=== PATIENT | male | born 1990 | race American Indian/Alaskan Native ===

== ENCOUNTER 2019-02-08 09:20 | Emergency (ER) | payer SELFPAY ==
[2019-02-08 09:27] VITALS: BP 129/89
[2019-02-08] MEDS ORDERED: ZOFRAN IM ONE (09:38)
[2019-02-08] MEDS ORDERED: TORADOL IM ONE (09:38)
[2019-02-08 10:08] LABS: Basophils # (Auto) 0.1 K/mm3 (0.0-0.1); Basophils % (Auto) 1.1 % (0.0-1.8); Eosinophils # (Auto) 0.1 K/mm3 (0.0-0.4); Hematocrit 46.1 % (35.5-45.6); Hemoglobin 15.1 gm/dl (11.8-15.2); Lymphocytes # (Auto) 1.8 K/mm3 (1.2-5.4); Lymphocytes % (Auto) 27.3 % (13.4-35.0); Mean Corpuscular HGB Conc 33 % (32-34); Mean Corpuscular Volume 91 fl (84-94); Monocytes # (Auto) 0.7 K/mm3 (0.0-0.8); Monocytes % (Auto) 10.5 % (0.0-7.3); Red Blood Count 5.09 M/mm3 (3.65-5.03)
[2019-02-08 10:23] LABS: BUN/Creatinine Ratio 8; Blood Urea Nitrogen 10 mg/dL (9-20); Calcium 9.4 mg/dL (8.4-10.2); Hemolysis Index 8
[2019-02-08 10:23] LABS: Bilirubin,Urine NEG (Negative); Blood,Urine NEG (Negative); Color,Urine Yellow (Yellow); Mucus,Urine FEW /HPF; Protein,Urine <15 mg/dL mg/dL (Negative); Urobilinogen,Urine < 2.0 mg/dL (<2.0)
--- NOTE | 2019-02-08 11:17 | Cat Scan Report ---
CT ABDOMEN AND PELVIS WITHOUT CONTRAST HISTORY: right flank pain. Right-sided abdominal pain for 2 weeks. COMPARISON: None. TECHNIQUE: Axial CT images were obtained through the abdomen and pelvis without IV contrast. Sagittal and coronal reformatted images. All CT scans at this location are performed using CT dose reduction for ALARA by means of automated exposure control. FINDINGS: CT ABDOMEN: Lung Bases: Clear. Liver: There is moderate diffuse fatty infiltration throughout the liver. Biliary: No significant abnormality. Spleen: No significant abnormality. Unenlarged. Pancreas: No significant abnormality. Adrenals: No significant abnormality. Kidneys: Both kidneys are normal size, contour and position. A solitary punctate calyceal stone is id entified in the mid right kidney on image 60, series 3. No focal renal lesion, ureteral stone or hydr onephrosis. The bladder is empty. Lymphatics: No lymphadenopathy. Vasculature: No significant abnormality. Bowel/Peritoneum: There is no evidence for bowel obstruction, mass or focal inflammation. The colon i s poorly distended but there appears to be mild diffuse thickening of the colon wall. A mild nonspeci fic colitis could be considered. Normal appendix. CT PELVIS: : No significant abnormality. Osseous Structures: No significant abnormality. Additional Findings: Small umbilical hernia containing fat is noted. IMPRESSION: Punctate right renal stone, nonobstructing. Question a mild nonspecific colitis. Signer Name: Cade Sellers Jr, MD Signed: 02/08/2019 11:12 AM Workstation Name: [id number]
[2019-02-08 11:37] LABS: Platelet Count 161 K/mm3 (140-440)
--- NOTE | 2019-02-08 11:52 | Emergency Department Report ---
ED Abdominal Pain HPI - General Chief Complaint: Abdominal Pain Stated Complaint: KIDNEY PAIN Time Seen by Provider: 02/08/19 09:34 Source: patient Mode of arrival: Ambulatory Limitations: No Limitations - History of Present Illness Initial Comments: Patient is a 28-year-old -Citizen Of [place] male with a past history of 2 weeks of right-sided flank pain. Patient states this is worse at night however it has been constant. She states her crampy sensation. Patient states when he urinates his flank hurts more. He has no dysuria or penile discharge or hematuria. Patient denies diarrhea. He has had some mild nausea but no vomiting. Patient has no past medical history of significance. Severity scale (0 -10): 9 - Related Data Previous Rx's Medication Instructions Recorded Last Taken Type Ciprofloxacin HCl [Ciprofloxacin 500 mg PO Q12HR #14 tab 02/08/19 Unknown Rx TAB] metroNIDAZOLE [Flagyl] 500 mg PO Q12HR #14 tab 02/08/19 Unknown Rx traMADol [Ultram] 50 mg PO Q6HR PRN #12 tablet 02/08/19 Unknown Rx Allergies Allergy/AdvReac Type Severity Reaction Status Date / Time ibuprofen [From Motrin IB] Allergy Nausea Verified 02/08/19 09:28 ED Review of Systems ROS: Stated complaint: KIDNEY PAIN Other details as noted in HPI Comment: All other systems reviewed and negative ED Past Medical Hx - Past Medical History Previous Medical History?: No - Surgical History Past Surgical History?: No - Social History Smoking Status: Never Smoker Substance Use Type: Alcohol - Medications Home Medications: Home Medications Medication Instructions Recorded Confirmed Last Taken Type Ciprofloxacin HCl [Ciprofloxacin 500 mg PO Q12HR #14 tab 02/08/19 Unknown Rx TAB] metroNIDAZOLE [Flagyl] 500 mg PO Q12HR #14 tab 02/08/19 Unknown Rx traMADol [Ultram] 50 mg PO Q6HR PRN #12 tablet 02/08/19 Unknown Rx ED Physical Exam - General Limitations: No Limitations General appearance: alert, in no apparent distress - Head Head exam: Present: atraumatic, normocephalic - Eye Eye exam: Present: normal appearance - ENT ENT exam: Present: mucous membranes moist - Neck Neck exam: Present: normal inspection - Respiratory Respiratory exam: Present: normal lung sounds bilaterally, wheezes, rales, rhonchi. Absent: respiratory distress - Cardiovascular Cardiovascular Exam: Present: regular rate, normal rhythm, normal heart sounds. Absent: systolic murmur, diastolic murmur, rubs, gallop - GI/Abdominal GI/Abdominal exam: Present: soft, tenderness (right flank), normal bowel sounds. Absent: distended, guarding, rebound, rigid - Rectal Rectal exam: Present: deferred - Extremities Exam Extremities exam: Present: normal inspection - Back Exam Back exam: Present: normal inspection - Neurological Exam Neurological exam: Present: alert, oriented X3 - Psychiatric Psychiatric exam: Present: normal affect, normal mood - Skin Skin exam: Present: warm, dry, intact, normal color. Absent: rash ED Course Vital Signs 02/08/19 09:26 Temperature 98.0 F Pulse Rate 54 L Respiratory 16 Rate Blood Pressure 129/89 O2 Sat by Pulse 98 Oximetry ED Medical Decision Making - Lab Data Result diagrams: 02/08/19 09:52 02/08/19 09:52 Lab Results 02/08/19 02/08/19 02/08/19 Range/Units 09:49 09:52 09:52 WBC 6.5 (4.5-11.0) K/mm3 RBC 5.09 H (3.65-5.03) M/mm3 Hgb 15.1 (11.8-15.2) gm/dl Hct 46.1 H (35.5-45.6) % MCV 91 (84-94) fl MCH 30 (28-32) pg MCHC 33 (32-34) % RDW 14.0 (13.2-15.2) % Plt Count 161 (140-440) K/mm3 Lymph % (Auto) 27.3 (13.4-35.0) % [place] % (Auto) 10.5 H (0.0-7.3) % Eos % (Auto) 2.0 (0.0-4.3) % Baso % (Auto) 1.1 (0.0-1.8) % Lymph # 1.8 (1.2-5.4) K/mm3 [place] # 0.7 (0.0-0.8) K/mm3 Eos # 0.1 (0.0-0.4) K/mm3 Baso # 0.1 (0.0-0.1) K/mm3 Seg Neutrophils % 59.1 (40.0-70.0) % Seg Neutrophils # 3.8 (1.8-7.7) K/mm3 Sodium 138 (137-145) mmol/L Potassium 4.2 (3.6-5.0) mmol/L Chloride 103.1 (98-107) mmol/L Carbon Dioxide 25 (22-30) mmol/L Anion Gap 14 mmol/L BUN 10 (9-20) mg/dL Creatinine 1.2 (0.8-1.5) mg/dL Estimated GFR > 60 ml/min BUN/Creatinine Ratio 8 % Glucose 103 H (75-100) mg/dL Calcium 9.4 (8.4-10.2) mg/dL Urine Color Yellow (Yellow) Urine Turbidity Clear (Clear) Urine pH 5.0 (5.0-7.0) Ur Specific [place] 1.019 (1.003-1.030) Urine Protein <15 mg/dl (Negative) mg/dL Urine Glucose (UA) Neg (Negative) mg/dL Urine Ketones Neg (Negative) mg/dL Urine Blood Neg (Negative) Urine Nitrite Neg (Negative) Urine Bilirubin Neg (Negative) Urine Urobilinogen < 2.0 (<2.0) mg/dL Ur Leukocyte Esterase Neg (Negative) Urine WBC (Auto) 1.0 (0.0-6.0) /HPF Urine RBC (Auto) 4.0 (0.0-6.0) /HPF U Epithel Cells (Auto) < 1.0 (0-13.0) /HPF Urine Mucus Few /HPF - Medical Decision Making Ordering Physician: KIERA HALL MD Date of Service: 02/08/19 Procedure(s): CT abdomen pelvis wo [facility] Accession Number(s): [id number] cc: KIERA HALL MD CT ABDOMEN AND PELVIS WITHOUT CONTRAST HISTORY: right flank pain. Right-sided abdominal pain for 2 weeks. COMPARISON: None. TECHNIQUE: Axial CT images were obtained through the abdomen and pelvis without IV contrast. Sagittal and coronal reformatted images. All CT scans at this location are performed using CT dose reduction for ALARA by means of automated exposure control. FINDINGS: CT ABDOMEN: Lung Bases: Clear. Liver: There is moderate diffuse fatty infiltration throughout the liver. Biliary: No significant abnormality. Spleen: No significant abnormality. Unenlarged. Pancreas: No significant abnormality. Adrenals: No significant abnormality. Kidneys: Both kidneys are normal size, contour and position. A solitary punctate calyceal stone is identified in the mid right kidney on image 60, series 3. No focal renal lesion, ureteral stone or hydronephrosis. The bladder is empty. Lymphatics: No lymphadenopathy. Vasculature: No significant abnormality. Bowel/Peritoneum: There is no evidence for bowel obstruction, mass or focal inflammation. The colon is poorly distended but there appears to be mild diffuse thickening of the colon wall. A mild nonspecific colitis could be considered. Normal appendix. CT PELVIS: : No significant abnormality. Osseous Structures: No significant abnormality. Additional Findings: Small umbilical hernia containing fat is noted. IMPRESSION: Punctate right renal stone, nonobstructing. Question a mild nonspecific colitis. Signer Name: Cade Sánchez Jr, MD Signed: 02/08/2019 11:12 AM Workstation Name: [id number] Transcribed By: TTR Dictated By: CADE SÁNCHEZ JR, MD Electronically Authenticated By: CADE SÁNCHEZ JR, MD Signed Date/Time: 02/08/19 1112 Patient is a 28-year-old -Citizen Of [place] male who is presenting with some right flank pain. Patient does have a small punctate stone within the right kidney which likely is not the cause of the patient's pain at this time however he could have passed some small stones in the last 2 weeks. Patient also shows no evidence of a possible colitis. Patient will be started on Cipro Flagyl given meds for pain relief be given follow-up. DD/ 1108 TD/TT: Critical care attestation.: If time is entered above; I have spent that time in minutes in the direct care of this critically ill patient, excluding procedure time. ED Disposition Clinical Impression: Kidney stone, Colitis Disposition: DC-01 TO HOME OR SELFCARE Is pt being admited?: No Does the pt Need Aspirin: No Condition: Stable Instructions: Infectious Colitis (ED), Kidney Stones (ED) Referrals: LOUIS MEDRANO MD [Staff Physician] - 3-5 Days Time of Disposition: 11:53
== END 2019-02-08 12:01 | disposition home or self-care (01) ==
LOC: ED 09:20
DX: K52.9 Noninfective gastroenteritis and colitis, unspecified (principal); N20.0 Calculus of kidney; Z88.5 Allergy status to narcotic agent; Z79.899 Other long term (current) drug therapy
CPT/HCPCS: 36415; 74176; 80048; 81001; 85025; 96372; 99284; J1885; J2405

== ENCOUNTER 2020-01-20 13:24 | Emergency (ER) | payer SELFPAY ==
[2020-01-20 16:25] LABS: Basophils # (Auto) 0.1 K/mm3 (0.0-0.1); Basophils % (Auto) 0.8 % (0.0-1.8); Eosinophils # (Auto) 0.2 K/mm3 (0.0-0.4); Eosinophils % (Auto) 2.6 % (0.0-4.3); Hematocrit 41.8 % (35.5-45.6); Hemoglobin 14.7 gm/dl (11.8-15.2); Lymphocytes # (Auto) 1.5 K/mm3 (1.2-5.4); Lymphocytes % (Auto) 23.6 % (13.4-35.0); Mean Corpuscular HGB Conc 35 % (32-34); Mean Corpuscular Volume 90 fl (84-94); Monocytes # (Auto) 0.7 K/mm3 (0.0-0.8); Monocytes % (Auto) 10.7 % (0.0-7.3); Platelet Count 189 K/mm3 (140-440); Red Blood Count 4.63 M/mm3 (3.65-5.03); Red Cell Distribution Width 12.9 % (13.2-15.2)
[2020-01-20 16:29] LABS: Alanine Aminotransferase 46 units/L (7-56); Albumin 4.5 g/dL (3.9-5); BUN/Creatinine Ratio 10; Blood Urea Nitrogen 11 mg/dL (9-20); Calcium 10.1 mg/dL (8.4-10.2); Hemolysis Index 25
[2020-01-20] MEDS ORDERED: MORPHINE 4 MG/1 ML INJ IV ONE (17:38)
[2020-01-20] MEDS ORDERED: SODIUM CHLORIDE 0.9% 1000 ML 1,000 ML IV ONE (17:38)
[2020-01-20] MEDS ORDERED: ONDANSETRON 4 MG/2 ML INJ IV ONE (17:38)
[2020-01-20 17:58] LABS: Bilirubin,Urine NEG (Negative); Blood,Urine NEG (Negative); Color,Urine Yellow (Yellow); Hyaline Casts,Urine 1 /LPF; Protein,Urine <15 mg/dL mg/dL (Negative); Urobilinogen,Urine < 2.0 mg/dL (<2.0)
--- NOTE | 2020-01-20 18:11 | Cat Scan Report ---
CT ABDOMEN AND PELVIS WITHOUT CONTRAST INDICATION: Abdominal pain status post plastic surgery. TECHNIQUE: Axial CT images were obtained through the abdomen and pelvis without IV contrast. All CT scans at [facility] location are performed using CT dose reduction for ALARA by means of automated exposure control. COMPARISON: None available. FINDINGS: LOWER CHEST: No significant abnormality. LIVER: Moderate decreased attenuation throughout liver characteristic for steatosis. GALLBLADDER: No significant abnormality. BILE DUCTS: No significant abnormality. PANCREAS: No significant abnormality. SPLEEN: No significant abnormality. ADRENALS: No significant abnormality. RIGHT KIDNEY and URETER: No significant abnormality. LEFT KIDNEY and URETER: No significant abnormality. STOMACH and SMALL BOWEL: No significant abnormality. COLON: No significant abnormality. APPENDIX: Normal. PERITONEUM: No free fluid. No free air. No fluid collection. LYMPH NODES: No significant adenopathy. AORTA and ARTERIES: No significant abnormality. IVC and VEINS: No significant abnormality. URINARY BLADDER: Somewhat thick-walled trabeculated urinary bladder characteristic for cystitis. No a djacent perivesicular stranding changes. REPRODUCTIVE ORGANS: No significant abnormality. ADDITIONAL FINDINGS: Small fat-containing umbilical hernia SKELETAL SYSTEM: Geographic osteonecrosis both femoral heads IMPRESSION: 1. Thick-walled bladder suggestive for cystitis. Correlate with urinalysis studies. 2. Geographic osteonecrosis both femoral heads without subchondral collapse or secondary degenerativ e change 3. Small fat-containing umbilical hernia Signer Name: Nasir Villalta MD Signed: 01/20/2020 6:07 PM Workstation Name: [id number]
--- NOTE | 2020-01-20 19:43 | Emergency Department Report ---
ED General Adult HPI - General Chief complaint: Abdominal Pain Stated complaint: KIDNEY PAIN Time Seen by Provider: 01/20/20 17:28 Source: patient Mode of arrival: Ambulatory Limitations: No Limitations - History of Present Illness Initial comments: 29-year-old -[place] male patient presents with complaints of right flank pain x1 to 2 weeks. He rates his pain as a 10/10 in severity and describes it as aching and stabbing. Patient reports the pain radiates down into his right buttock. He states he has history of kidney stones and this pain feels the same. He denies any dysuria/hematuria, urinary frequency, penile discharge, fever/chills/sweats, or stool changes. He does admit to one episode of nausea and vomiting today. Patient states he has not followed up with a urologist in the past for his kidney stones. Severity scale (0 -10): 7 - Related Data Previous Rx's Medication Instructions Recorded Last Taken Type Ciprofloxacin HCl [Ciprofloxacin 500 mg PO Q12HR #14 tab 02/08/19 Unknown Rx TAB] metroNIDAZOLE [Flagyl] 500 mg PO Q12HR #14 tab 02/08/19 Unknown Rx traMADoL [Ultram] 50 mg PO Q6HR PRN #12 tablet 02/08/19 Unknown Rx Ibuprofen [Motrin 800 MG tab] 800 mg PO Q8HR PRN #21 tablet 01/20/20 Unknown Rx methOCARBAMOL [Robaxin TAB] 1,500 mg PO Q8H PRN #20 tablet 01/20/20 Unknown Rx Allergies Allergy/AdvReac Type Severity Reaction Status Date / Time ibuprofen [From Motrin IB] Allergy Nausea Verified 02/08/19 09:28 ED Review of Systems ROS: Stated complaint: KIDNEY PAIN Other details as noted in HPI Constitutional: denies: chills, diaphoresis, fever, malaise, weakness Respiratory: denies: cough, shortness of breath Cardiovascular: denies: chest pain Gastrointestinal: nausea, vomiting. denies: abdominal pain, diarrhea, constipation, hematemesis, melena, hematochezia Genitourinary: denies: urgency, dysuria, frequency, hematuria Musculoskeletal: back pain Skin: denies: rash, lesions ED Past Medical Hx - Past Medical History Previous Medical History?: Yes Hx Kidney Stones: Yes - Surgical History Past Surgical History?: No - Social History Smoking Status: Never Smoker Substance Use Type: Alcohol - Medications Home Medications: Home Medications Medication Instructions Recorded Confirmed Last Taken Type Ciprofloxacin HCl [Ciprofloxacin 500 mg PO Q12HR #14 tab 02/08/19 Unknown Rx TAB] metroNIDAZOLE [Flagyl] 500 mg PO Q12HR #14 tab 02/08/19 Unknown Rx traMADoL [Ultram] 50 mg PO Q6HR PRN #12 tablet 02/08/19 Unknown Rx Ibuprofen [Motrin 800 MG tab] 800 mg PO Q8HR PRN #21 tablet 01/20/20 Unknown Rx methOCARBAMOL [Robaxin TAB] 1,500 mg PO Q8H PRN #20 tablet 01/20/20 Unknown Rx ED Physical Exam - General Limitations: No Limitations General appearance: alert, in no apparent distress - Head Head exam: Present: atraumatic, normocephalic - Eye Eye exam: Present: normal appearance. Absent: scleral icterus - Neck Neck exam: Present: normal inspection - Respiratory Respiratory exam: Present: normal lung sounds bilaterally. Absent: respiratory distress - Cardiovascular Cardiovascular Exam: Present: regular rate, normal rhythm. Absent: systolic murmur, diastolic murmur, rubs, gallop - GI/Abdominal GI/Abdominal exam: Present: soft, normal bowel sounds. Absent: distended, ten derness, guarding, rebound, rigid - Extremities Exam Extremities exam: Present: normal inspection, full ROM - Back Exam Back exam: Present: full ROM, CVA tenderness (R), other (Tenderness to palpation noted overlying the right buttock). Absent: CVA tenderness (L), vertebral tenderness - Neurological Exam Neurological exam: Present: alert, oriented X3, normal gait, other. Absent: motor sensory deficit - Psychiatric Psychiatric exam: Present: normal affect, normal mood - Skin Skin exam: Present: warm, dry, intact, normal color. Absent: rash, cyanosis, erythema ED Course Vital Signs 01/20/20 13:55 Temperature 98.5 F Pulse Rate 65 Respiratory 16 Rate Blood Pressure 146/86 [Right] O2 Sat by Pulse 98 Oximetry ED Medical Decision Making - Lab Data Result diagrams: 01/20/20 15:46 01/20/20 15:46 Lab Results 01/20/20 01/20/20 01/20/20 Range/Units 15:46 15:46 17:47 WBC 6.6 (4.5-11.0) K/mm3 RBC 4.63 (3.65-5.03) M/mm3 Hgb 14.7 (11.8-15.2) gm/dl Hct 41.8 (35.5-45.6) % MCV 90 (84-94) fl MCH 32 (28-32) pg MCHC 35 H (32-34) % RDW 12.9 L (13.2-15.2) % Plt Count 189 (140-440) K/mm3 Lymph % (Auto) 23.6 (13.4-35.0) % [place] % (Auto) 10.7 H (0.0-7.3) % Eos % (Auto) 2.6 (0.0-4.3) % Baso % (Auto) 0.8 (0.0-1.8) % Lymph # 1.5 (1.2-5.4) K/mm3 [place] # 0.7 (0.0-0.8) K/mm3 Eos # 0.2 (0.0-0.4) K/mm3 Baso # 0.1 (0.0-0.1) K/mm3 Seg Neutrophils % 62.3 (40.0-70.0) % Seg Neutrophils # 4.1 (1.8-7.7) K/mm3 Sodium 137 (137-145) mmol/L Potassium 4.4 (3.6-5.0) mmol/L Chloride 102.1 (98-107) mmol/L Carbon Dioxide 25 (22-30) mmol/L Anion Gap 14 mmol/L BUN 11 (9-20) mg/dL Creatinine 1.1 (0.8-1.3) mg/dL Estimated GFR > 60 ml/min BUN/Creatinine Ratio 10 % Glucose 83 (75-100) mg/dL Calcium 10.1 (8.4-10.2) mg/dL Total Bilirubin 0.20 (0.1-1.2) mg/dL AST 33 (5-40) units/L ALT 46 (7-56) units/L Alkaline Phosphatase 87 (35-129) units/L Total Protein 7.6 (6.3-8.2) g/dL Albumin 4.5 (3.9-5) g/dL Albumin/Globulin Ratio 1.5 % Lipase 14 (13-60) units/L Urine Color Yellow (Yellow) Urine Turbidity Clear (Clear) Urine pH 5.0 (5.0-7.0) Ur Specific [place] 1.012 (1.003-1.030) Urine Protein <15 mg/dl (Negative) mg/dL Urine Glucose (UA) Neg (Negative) mg/dL Urine Ketones Neg (Negative) mg/dL Urine Blood Neg (Negative) Urine Nitrite Neg (Negative) Urine Bilirubin Neg (Negative) Urine Urobilinogen < 2.0 (<2.0) mg/dL Ur Leukocyte Esterase Neg (Negative) Urine WBC (Auto) 1.0 (0.0-6.0) /HPF Urine RBC (Auto) 2.0 (0.0-6.0) /HPF U Epithel Cells (Auto) < 1.0 (0-13.0) /HPF Hyaline Casts 1 /LPF - Radiology Data Radiology results: report reviewed CT ABDOMEN AND PELVIS WITHOUT CONTRAST INDICATION: Abdominal pain status post plastic surgery. TECHNIQUE: Axial CT images were obtained through the abdomen and pelvis without IV contra st. All CT scans at this location are performed using CT dose reduction for ALARA by means of auto mated exposure control. COMPARISON: None available. FINDINGS: LOWER CHEST: No significant abnormality. LIVER: Moderate decreased attenuation throughout liver characteristic for steatosis. GALLBLADDER: No significant abnormality. BILE DUCTS: No significant abnormality. PANCREAS: No significant abnormality. SPLEEN: No significant abnormality. ADRENALS: No significant abnormality. RIGHT KIDNEY and URETER: No significant abnormality. LEFT KIDNEY and URETER: No significant abnormality. STOMACH and SMALL BOWEL: No significant abnormality. COLON: No significant abnormality. APPENDIX: Normal. PERITONEUM: No free fluid. No free air. No fluid collection. LYMPH NODES: No significant adenopathy. AORTA and ARTERIES: No significant abnormality. IVC and VEINS: No significant abnormality. URINARY BLADDER: Somewhat thick-walled trabeculated urinary bladder characteristic for cystitis. No adjacent perivesicular stranding changes. REPRODUCTIVE ORGANS: No significant abnormality. ADDITIONAL FINDINGS: Small fat-containing umbilical hernia SKELETAL SYSTEM: Geographic osteonecrosis both femoral heads IMPRESSION: 1. Thick-walled bladder suggestive for cystitis. Correlate with urinalysis studies. 2. Geographic osteonecrosis both femoral heads without subchondral collapse or secondary degenerative change 3. Small fat-containing umbilical hernia - Medical Decision Making Patient here with complaints of right flank pain X 1 to 2 weeks. He reports history of kidney stones and states this pain feels similar. On exam he has right CVA tenderness. CBC and CMP are normal. Given patient's history of kidney stones and no right CVA tenderness on exam, CT noncontrast of the abdomen was ordered and was negative for kidney stones. CT did show wall thickening of the bladder and possible cystitis, however UA is negative for any leukocytosis or WBCs. Patient also had tenderness to palpation overlying the right buttock concerning for sciatic nerve irritation. Will treat for back strain and sciatica with NSAID and Robaxin. Recommend follow-up with Ortho. His vitals are normal, he is well-appearing, stable for discharge home. Strict return precautions were discussed in detail with patient who verbalized understanding Critical care attestation.: If time is entered above; I have spent that time in minutes in the direct care of this critically ill patient, excluding procedure time. ED Disposition Clinical Impression: Osteonecrosis of both hips Right low back pain Qualifiers: Chronicity: acute Sciatica presence: without sciatica Qualified Code(s): M54.5 - Low back pain Disposition: TO HOME OR SELFCARE Is pt being admited?: No Condition: Stable Instructions: Osteoarthritis (ED), Sciatica (ED), Low Back Strain (ED) Prescriptions: Ibuprofen [Motrin 800 MG tab] 800 mg PO Q8HR PRN #21 tablet PRN Reason: pain methOCARBAMOL [Robaxin TAB] 1,500 mg PO Q8H PRN #20 tablet PRN Reason: muscle spasm/tightness Referrals: GAYE PIPER MD [Staff Physician] - 3-5 Days
[2020-01-20] MEDS ORDERED: KETOROLAC 10 MG TAB PO ONE (20:16)
[2020-01-20 20:20] VITALS: BP 132/81
[2020-01-20] MEDS ORDERED: KETOROLAC 30 MG/1 ML INJ IV ONE (20:21)
== END 2020-01-20 20:30 | disposition home or self-care (01) ==
LOC: ED 13:24
DX: M87.850 Other osteonecrosis, pelvis (principal); Z88.6 Allergy status to analgesic agent
CPT/HCPCS: 36415; 74176; 80053; 81001; 83690; 85025; 96361; 96374; 96375; 99284; J1885; J2270; J2405; J7030

== ENCOUNTER 2020-04-05 09:11 | Emergency (ER) | payer SELFPAY ==
[2020-04-05 09:16] VITALS: BP 140/99
[2020-04-05] MEDS ORDERED: KETOROLAC 60 MG/2 ML INJ IM ONE ×2 (09:58→10:11)
[2020-04-05] MEDS ORDERED: predniSONE 20 MG TAB PO ONE (09:58)
--- NOTE | 2020-04-05 10:56 | Emergency Department Report ---
ED Back Pain/Injury HPI - General Chief Complaint: Back Pain/Injury Stated Complaint: SPAMS Time Seen by Provider: 04/05/20 09:50 Source: patient Limitations: No Limitations - History of Present Illness Initial Comments: This is a 30-year-old male nontoxic, well nourished in appearance, no acute signs of distress presents to the ED with c/o of acute on chronic lower back pain. Patient stated that the past 2 days he was moving and developed this pain. Patient denies any radiation of pain. Patient denies any trauma. Denies any bladder or bowel instability. Patient denies any urinary symptoms. Denies any fever, chills, nausea, vomiting, headache, stiff neck, chest pain or shortness of breath. Patient denies any numbness or tingling. Denies any allergies. Denies significant past medical history. MD Complaint: back pain -: days(s) Similar Symptoms Previously: Yes Place: home Radiation: none Severity: mild Severity scale (0 -10): 3 Quality: aching Consistency: intermittent Improves With: immobilization, sitting upright Worsens With: movement, walking Context: while lifting, turning/twisting Associated Symptoms: denies other symptoms. denies: confusion, weakness, chest pain, numbness, difficulty walking, cough, difficulty urinating, diaphoresis, incontinence, fever/chills, constipation, headaches, abdominal pain, loss of appetite, malaise, nausea/vomiting, rash, seizure, shortness of breath, syncope - Related Data Previous Rx's Medication Instructions Recorded Last Taken Type Ciprofloxacin HCl [Ciprofloxacin 500 mg PO Q12HR #14 tab 02/08/19 Unknown Rx TAB] metroNIDAZOLE [Flagyl] 500 mg PO Q12HR #14 tab 02/08/19 Unknown Rx traMADoL [Ultram] 50 mg PO Q6HR PRN #12 tablet 02/08/19 Unknown Rx Ibuprofen [Motrin 800 MG tab] 800 mg PO Q8HR PRN #21 tablet 01/20/20 Unknown Rx methOCARBAMOL [Robaxin TAB] 1,500 mg PO Q8H PRN #20 tablet 01/20/20 Unknown Rx Cyclobenzaprine [Flexeril] 10 mg PO QHS PRN #10 tablet 04/05/20 Unknown Rx Naproxen 500 mg PO Q12H PRN #12 tablet 04/05/20 Unknown Rx Allergies Allergy/AdvReac Type Severity Reaction Status Date / Time ibuprofen [From Motrin IB] Allergy Nausea Verified 04/05/20 09:11 ED Review of Systems ROS: Stated complaint: SPAMS Other details as noted in HPI Constitutional: denies: chills, fever Eyes: denies: eye pain, eye discharge, vision change ENT: denies: ear pain, throat pain Respiratory: denies: cough, shortness of breath, wheezing Cardiovascular: denies: chest pain, palpitations Endocrine: no symptoms reported Gastrointestinal: denies: abdominal pain, nausea, diarrhea Genitourinary: denies: urgency, dysuria Musculoskeletal: back pain. denies: joint swelling, arthralgia Skin: denies: rash, lesions Neurological: denies: headache, weakness, paresthesias Psychiatric: denies: anxiety, depression Hematological/Lymphatic: denies: easy bleeding, easy bruising ED Past Medical Hx - Past Medical History Hx Kidney Stones: Yes - Surgical History Past Surgical History?: No - Social History Smoking Status: Current Every Day Smoker - Medications Home Medications: Home Medications Medication Instructions Recorded Confirmed Last Taken Type Ciprofloxacin HCl [Ciprofloxacin 500 mg PO Q12HR #14 tab 02/08/19 Unknown Rx TAB] metroNIDAZOLE [Flagyl] 500 mg PO Q12HR #14 tab 02/08/19 Unknown Rx traMADoL [Ultram] 50 mg PO Q6HR PRN #12 tablet 02/08/19 Unknown Rx Ibuprofen [Motrin 800 MG tab] 800 mg PO Q8HR PRN #21 tablet 01/20/20 Unknown Rx methOCARBAMOL [Robaxin TAB] 1,500 mg PO Q8H PRN #20 tablet 01/20/20 Unknown Rx Cyclobenzaprine [Flexeril] 10 mg PO QHS PRN #10 tablet 04/05/20 Unknown Rx Naproxen 500 mg PO Q12H PRN #12 tablet 04/05/20 Unknown Rx ED Physical Exam - General Limitations: No Limitations General appearance: alert, in no apparent distress - Head Head exam: Present: atraumatic, normocephalic - Eye Eye exam: Present: normal appearance - Neck Neck exam: Present: normal inspection, full ROM. Absent: tenderness, meningismus, lymphadenopathy - Respiratory Respiratory exam: Present: normal lung sounds bilaterally. Absent: respiratory distress, wheezes, rales, rhonchi, stridor, chest wall tenderness, accessory muscle use, decreased breath sounds, prolonged expiratory - Cardiovascular Cardiovascular Exam: Present: regular rate, normal rhythm, normal heart sounds. Absent: bradycardia, tachycardia, irregular rhythm, systolic murmur, diastolic murmur, rubs, gallop - GI/Abdominal GI/Abdominal exam: Present: soft, normal bowel sounds. Absent: distended, tenderness, guarding, rebound, rigid, diminished bowel sounds - Extremities Exam Extremities exam: Present: normal inspection, full ROM. Absent: tenderness, calf tenderness - Back Exam Back exam: Present: normal inspection, full ROM, paraspinal tenderness (lumbar paraspinal). Absent: tenderness, CVA tenderness (R), CVA tenderness (L), muscle spasm, vertebral tenderness, rash noted - Expanded Back Exam Expanded Back exam: Absent: saddle anesthesia Back exam: Negative Straight Leg Raising: Left, Right - Neurological Exam Neurological exam: Present: alert, oriented X3, normal gait - Psychiatric Psychiatric exam: Present: normal affect, normal mood - Skin Skin exam: Present: warm, dry, intact, normal color. Absent: rash ED Course Vital Signs 04/05/20 04/05/20 09:13 10:35 Temperature 97 F L Pulse Rate 72 Respiratory 20 18 Rate Blood Pressure 140/99 O2 Sat by Pulse 98 Oximetry - Reevaluation(s) Reevaluation #1: 04/05/20 10:54 Patient is speaking in full sentences with no signs of distress noted. ED Medical Decision Making - Medical Decision Making This is a 30-year-old male that presents with low back strain. Patient is stable was examined by me. There is no spinal tenderness. There is no cauda equina syndrome during examination. No bladder or bowel instability. Patient received Toradol 60 mg IM and prednisone in the ED which stated that his symptoms has resolved and subsided. Patient is discharged with muscle relaxant and Motrin. Patient was instructed not to operate any machinery while taking muscle relaxant as they cause her drowsiness. Patient was referred to Follow-up with a primary care doctor in 3-5 days or if symptoms worsen and continue return to emergency room as soon as possible. At time of discharge, the patient does not seem toxic or ill in appearance. No acute signs of distress noted. Patient agrees to discharge treatment plan of care. No further questions noted by the patient. This chart is dictated with using [employer] Critical care attestation.: If time is entered above; I have spent that time in minutes in the direct care of this critically ill patient, excluding procedure time. ED Disposition Clinical Impression: Low back strain Qualifiers: Encounter type: initial encounter Qualified Code(s): S39.012A - Strain of muscle, fascia and tendon of lower back, initial encounter Disposition: TO HOME OR SELFCARE Is pt being admited?: No Does the pt Need Aspirin: No Condition: Stable Instructions: Lumbosacral Strain, Cyclobenzaprine tablets Additional Instructions: Follow-up with your primary care doctor in 3-5 days or if symptoms worsen such as bladder or bowel stability, chest pain, short of breath, numbness or tingling sensation in extremities, headache, dizziness, visual changes, nausea vomiting, or abdominal pain, return back to emergency room as was possible. Take ibuprofen and Flexeril as prescribed. Do not operate heavy machinery while taking Flexeril due to sedation Prescriptions: Cyclobenzaprine [Flexeril] 10 mg PO QHS PRN #10 tablet PRN Reason: Muscle Spasm Naproxen 500 mg PO Q12H PRN #12 tablet PRN Reason: Pain , Severe (7-10) Referrals: PRIMARY MD DARRIN [Referring] - 3-5 Days CLAUDE AGUIAR MD [Staff Physician] - 3-5 Days
== END 2020-04-05 11:21 | disposition home or self-care (01) ==
LOC: ED 09:11
DX: S39.012A Strain of muscle, fascia and tendon of lower back, initial encounter (principal); F17.200 Nicotine dependence, unspecified, uncomplicated; X58.XXXA Exposure to other specified factors, initial encounter; Y93.89 Activity, other specified; Y92.89 Other specified places as the place of occurrence of the external cause; Y99.8 Other external cause status
CPT/HCPCS: 96372; 99282; J1885; J7512

== ENCOUNTER 2020-06-27 21:12 | Emergency (ER) | payer SELFPAY ==
[2020-06-27 21:21] VITALS: BP 154/106
--- NOTE | 2020-06-27 21:50 | XRay Report ---
CHEST 2 VIEWS INDICATION / CLINICAL INFORMATION: chest pain. COMPARISON: 08/11/2017 FINDINGS: SUPPORT DEVICES: None. HEART / MEDIASTINUM: No significant abnormality. LUNGS / PLEURA: No significant pulmonary or pleural abnormality. No pneumothorax. ADDITIONAL FINDINGS: No significant additional findings. IMPRESSION: 1. No acute findings. Signer Name: Ryan Chilel MD Signed: 06/27/2020 9:45 PM Workstation Name: [id number]
[2020-06-27 23:20] LABS: Bilirubin,Urine NEG (Negative); Blood,Urine NEG (Negative); Color,Urine Yellow (Yellow); Mucus,Urine FEW /HPF; Protein,Urine <15 mg/dL mg/dL (Negative); RBC,Urine < 1.0 /HPF (0.0-6.0)
--- NOTE | 2020-06-28 00:07 | Emergency Department Report ---
ED General Adult HPI - General Chief complaint: Chest Pain Stated complaint: RT SIDE FLANK PAIN Time Seen by Provider: 06/27/20 21:26 Source: patient Mode of arrival: Ambulatory Limitations: No Limitations - History of Present Illness -: Gradual (w), week(s) (w) Location: chest Radiation: non-radiation Quality: aching, dull Consistency: constant Improves with: none Associated Symptoms: cough (With mucus production and occasional wheezing also sore throat), malaise. denies: diaphoresis, fever/chills, rash, seizure, shortness of breath, syncope, weakness - Related Data Previous Rx's Medication Instructions Recorded Last Taken Type Ciprofloxacin HCl [Ciprofloxacin 500 mg PO Q12HR #14 tab 02/08/19 Unknown Rx TAB] metroNIDAZOLE [Flagyl] 500 mg PO Q12HR #14 tab 02/08/19 Unknown Rx traMADoL [Ultram] 50 mg PO Q6HR PRN #12 tablet 02/08/19 Unknown Rx Ibuprofen [Motrin 800 MG tab] 800 mg PO Q8HR PRN #21 tablet 01/20/20 Unknown Rx methOCARBAMOL [Robaxin TAB] 1,500 mg PO Q8H PRN #20 tablet 01/20/20 Unknown Rx Cyclobenzaprine [Flexeril] 10 mg PO QHS PRN #10 tablet 04/05/20 Unknown Rx Naproxen 500 mg PO Q12H PRN #12 tablet 04/05/20 Unknown Rx Albuterol Mdi (or & Nicu Only) 2 puff IH QID PRN #1 inhalation 06/27/20 Unknown Rx [ProAir HFA Inhaler] Benzonatate [Tessalon Perles] 100 mg PO Q8HR #20 capsule 06/27/20 Unknown Rx predniSONE [Deltasone] 50 mg PO QDAY #5 tab 06/27/20 Unknown Rx Allergies Allergy/AdvReac Type Severity Reaction Status Date / Time ibuprofen [From Motrin IB] Allergy Nausea Verified 04/05/20 09:11 ED Review of Systems ROS: Stated complaint: RT SIDE FLANK PAIN Other details as noted in HPI Comment: All other systems reviewed and negative ED Past Medical Hx - Past Medical History Previous Medical History?: Yes Hx Kidney Stones: Yes - Surgical History Past Surgical History?: No - Social History Smoking Status: Current Every Day Smoker Substance Use Type: Alcohol - Medications Home Medications: Home Medications Medication Instructions Recorded Confirmed Last Taken Type Ciprofloxacin HCl [Ciprofloxacin 500 mg PO Q12HR #14 tab 02/08/19 Unknown Rx TAB] metroNIDAZOLE [Flagyl] 500 mg PO Q12HR #14 tab 02/08/19 Unknown Rx traMADoL [Ultram] 50 mg PO Q6HR PRN #12 tablet 02/08/19 Unknown Rx Ibuprofen [Motrin 800 MG tab] 800 mg PO Q8HR PRN #21 tablet 01/20/20 Unknown Rx methOCARBAMOL [Robaxin TAB] 1,500 mg PO Q8H PRN #20 tablet 01/20/20 Unknown Rx Cyclobenzaprine [Flexeril] 10 mg PO QHS PRN #10 tablet 04/05/20 Unknown Rx Naproxen 500 mg PO Q12H PRN #12 tablet 04/05/20 Unknown Rx Albuterol Mdi (or & Nicu Only) 2 puff IH QID PRN #1 inhalation 06/27/20 Unknown Rx [ProAir HFA Inhaler] Benzonatate [Tessalon Perles] 100 mg PO Q8HR #20 capsule 06/27/20 Unknown Rx predniSONE [Deltasone] 50 mg PO QDAY #5 tab 06/27/20 Unknown Rx ED Physical Exam - General Limitations: No Limitations General appearance: alert, in no apparent distress - Head Head exam: Present: atraumatic, normocephalic - Eye Eye exam: Present: normal appearance, PERRL, EOMI Pupils: Present: normal accommodation - ENT ENT exam: Present: normal exam, mucous membranes moist - Neck Neck exam: Present: normal inspection - Respiratory Respiratory exam: Present: normal lung sounds bilaterally. Absent: respiratory distress, wheezes, rales, rhonchi - Cardiovascular Cardiovascular Exam: Present: regular rate, normal rhythm. Absent: systolic murmur, diastolic murmur, rubs, gallop - GI/Abdominal GI/Abdominal exam: Present: soft, normal bowel sounds - Rectal Rectal exam: Present: deferred - Extremities Exam Extremities exam: Present: normal inspection - Back Exam Back exam: Present: normal inspection - Neurological Exam Neurological exam: Present: alert, oriented X3 - Psychiatric Psychiatric exam: Present: normal affect, normal mood - Skin Skin exam: Present: warm, dry, intact, normal color. Absent: rash ED Course Vital Signs 06/27/20 21:16 Temperature 98.2 F Respiratory 18 Rate Blood Pressure 154/106 Critical care attestation.: If time is entered above; I have spent that time in minutes in the direct care of this critically ill patient, excluding procedure time. ED Disposition Clinical Impression: Chest pain, Cough Disposition: DC- TO HOME OR SELFCARE Is pt being admited?: No Does the pt Need Aspirin: No Condition: Stable Instructions: Cool Mist Vaporizer, Cough, Adult, [id number], Nonspecific Chest Pain, Adult, Chest Pain (ED) Additional Instructions: Urinalysis was normal chest x-ray was relatively clear as we previously discussed take medication to help to resolve the asthma and cough symptoms Prescriptions: predniSONE [Deltasone] 50 mg PO QDAY #5 tab Albuterol Mdi (or & Nicu Only) [ProAir HFA Inhaler] 2 puff IH QID PRN #1 inhalation PRN Reason: Shortness Of Breath Benzonatate [Tessalon Perles] 100 mg PO Q8HR #20 capsule Referrals: CHRISTOPHER ELLIS MD [Primary Care Provider] - 3-5 Days
== END 2020-06-28 00:14 | disposition home or self-care (01) ==
LOC: ED 21:12
DX: R07.89 Other chest pain (principal); R05 Cough; N20.0 Calculus of kidney; F17.200 Nicotine dependence, unspecified, uncomplicated; Z79.899 Other long term (current) drug therapy
CPT/HCPCS: 71046; 81001; 99283